=== PATIENT | male | born 1995 | race Caucasian/White ===

== ENCOUNTER 2018-08-23 08:37 | Emergency (ER) | payer MEDICAID ==
[~2018-08-23] VITALS: Ht 177.8 cm; Wt 83.9 kg
[2018-08-23 08:48] VITALS: BP 134/76
== END 2018-08-23 10:26 | disposition home or self-care (01) ==
LOC: ER 08:37
DX: H61.23 Impacted cerumen, bilateral (principal); F17.200 Nicotine dependence, unspecified, uncomplicated
CPT/HCPCS: 69209; 99282

== ENCOUNTER 2018-10-03 22:01 | Emergency (ER) | payer MEDICAID ==
[~2018-10-03] VITALS: Ht 177.8 cm; Wt 81.8 kg
[2018-10-03 22:20] VITALS: BP 131/99
[2018-10-03] MEDS ORDERED: GABA300C PO (23:06)
[2018-10-03] MEDS ORDERED: LORA-269 PO (23:06)
[2018-10-03] MEDS ORDERED: ONDA4TAB6 PO (23:06)
== END 2018-10-03 23:17 | disposition home or self-care (01) ==
LOC: ER 22:01
DX: F32.9 Major depressive disorder, single episode, unspecified (principal); F10.10 Alcohol abuse, uncomplicated; Z87.891 Personal history of nicotine dependence; Z79.899 Other long term (current) drug therapy; Y90.9 Presence of alcohol in blood, level not specified
CPT/HCPCS: 99283; 99284

== ENCOUNTER 2019-10-15 16:22 | Emergency (ER) | payer MEDICAID ==
[~2019-10-15] VITALS: Ht 177.8 cm; Wt 70.0 kg
[~2019-10-15 16:22] MED LIST: GABA300C PO; LORA-269 PO; ONDA4TAB6 PO
[2019-10-15 16:51] VITALS: BP 120/66
[2019-10-15] MEDS ORDERED: PENI500T2 PO (17:27)
[2019-10-15] MEDS ORDERED: IBUP-1984 PO (17:27)
[2019-10-15] MEDS ORDERED: ondansetron 4mg rapidly disintigrating tab PO ONE (17:30)
[2019-10-15] MEDS ORDERED: HYDROcodone/acetaminophen 5mg/325mg tablet PO ONE (17:30)
--- NOTE | 2019-10-15 17:45 | NUR ---
PT STATED THAT HE DOES NOT HAVE RIDE BACK HOME SO HE DOES NOT WANT [employer] AND [employer].
== END 2019-10-15 17:48 | disposition home or self-care (01) ==
LOC: ER 16:23
DX: K04.7 Periapical abscess without sinus (principal); Z79.899 Other long term (current) drug therapy
CPT/HCPCS: 99283